=== PATIENT | female | born 1990 | race Caucasian/White ===

== ENCOUNTER 2024-12-31 15:50 | Observation (INO) | payer OTHER, SELFPAY ==
[2024-12-31 16:07] VITALS: BP 144/77; BMI 24.5
[2024-12-31 17:23] LABS: Hematocrit 34.3 % (37.0-47.0); Hemoglobin 12.1 g/dL (12.0-16.0); Mean Corp Hgb Conc. 35.3 g/dL (33.0-37.0); Mean Corpuscular Hgb 32.5 pg (27.0-31.0); Mean Corpuscular Volume 92.2 fL (81.0-99.0); Platelet Count 197 10^3/uL (130-400); Red Blood Cell Count 3.72 10^6/uL (4.20-5.40); Red Cell Dist. Width 12.3 % (11.5-14.5); White Blood Cell Count 12.7 10^3/uL (4.8-10.8)
[2024-12-31 17:40] LABS: Protein/creatinine Ratio 0.3; Urine Protein 16 mg/dl
[2024-12-31 17:48] LABS: ALT (SGPT) 12 U/L (0-35); AST (SGOT) 15 U/L (14-36); Albumin 3.6 g/dl (3.5-5.0); Alkaline Phosphatase 44 U/L (38-126); Blood Urea Nitrogen 12 mg/dl (7-17); Calcium 9.1 mg/dl (8.4-10.2); Carbon Dioxide 20 mmol/L (22-30); Chloride 110 mmol/L (98-107); Estimated Creatinine Clearance > 125 ml/min; Glucose 92 mg/dl (70-99); Potassium 3.7 mmol/L (3.5-5.1); Sodium 136 mmol/L (135-145); Total Bilirubin 0.2 mg/dl (0.2-1.3); Total Protein 6.2 g/dl (6.3-8.2); eGFR > 60.00
[2025-01-01 06:18] LABS: Hematocrit 33.2 % (37.0-47.0); Hemoglobin 11.5 g/dL (12.0-16.0); Mean Corp Hgb Conc. 34.6 g/dL (33.0-37.0); Mean Corpuscular Hgb 32.2 pg (27.0-31.0); Mean Platelet Volume 10.3 fL (7.4-10.4); Platelet Count 196 10^3/uL (130-400); Red Blood Cell Count 3.57 10^6/uL (4.20-5.40); Red Cell Dist. Width 12.3 % (11.5-14.5); White Blood Cell Count 10.2 10^3/uL (4.8-10.8)
[2025-01-01 06:36] LABS: ALT (SGPT) 11 U/L (0-35); AST (SGOT) 15 U/L (14-36); Albumin 3.3 g/dl (3.5-5.0); Alkaline Phosphatase 42 U/L (38-126); Blood Urea Nitrogen 9 mg/dl (7-17); Calcium 8.1 mg/dl (8.4-10.2); Carbon Dioxide 22 mmol/L (22-30); Estimated Creatinine Clearance > 125 ml/min; Glucose 86 mg/dl (70-99); Potassium 3.7 mmol/L (3.5-5.1); Sodium 135 mmol/L (135-145); Total Bilirubin 0.3 mg/dl (0.2-1.3); Total Protein 5.8 g/dl (6.3-8.2); eGFR > 60.00
[2025-01-01 06:45] LABS: Chloride 110 mmol/L (98-107)
--- NOTE | 2025-01-01 09:44 | CON.CAR ---
Consultation
Consultation Request
Date/Time Consultation Requested: January 01, 2025
Date/Time Consultation Performed: January 01, 2025
Requesting Provider: [facility]
Performing Provider: Elieser
Reason for Consultation: Preeclampsia with hypertension
Medical History
-
Chief Complaint: Preeclampsia with hypertension
History of Present Illness:
Leana Bey is a very pleasant 34-year-old female who is 21 weeks who presented for decreased movement. Apparently everything is thankfully okay with baby but mom was noted to have blood pressures in the 140s over 80s to 90
systolic. No neurologic symptoms. No chest symptoms, dyspnea dyspnea exertion or chest pain. She had preeclampsia in a prior and has proteinuria. No prior cardiac workup
Past Medical History
Past Medical History: HTN
Past Surgical History: Gynecological
Social History
Tobacco: Non-Smoker
Alcohol: None
Drug: None
Personal:
Living: With Family
Employment: Other
Family History
Family History: Reviewed & Not Pertinent
Allergies / Home Medications
Allergy/AdvReac Type Severity Reaction Status Date / Time
No Known Allergies Allergy Verified 02/17/22 22:29
�Medication �Instructions �Recorded �Confirmed �Type
1 tab PO 1XD 12/31/24 12/31/24 History
Review of Systems
-
All other systems: Negative unless noted
Physical Exam
Vital Signs
Temp Pulse Resp BP
98.2 F 74 18 144/77
12/31/24 16:07 12/31/24 16:07 12/31/24 16:07 12/31/24 16:07
Lab Results
01/01/25 06:05
01/01/25 06:05
Physical Exam
General: Well Developed, Well Nourished, No Apparent Distress and Comfortable
HEENT: Normocephalic, Anicteric and Atraumatic
Respiratory: Clear
Cardiac: S1/S2, Regular Rhythm and Murmur (No murmur)
Breast: Deferred by me
GI: Soft, Non Tender and Distended (Gravid abdomen)
Rectal: Deferred by Provider
Musculoskeletal: No Clubbing and No Cyanosis
Skin: Warm and Dry
Neuro: Awake, Alert, Oriented and AO x 3
Hematologic/Lymphatic: No Lymphadenopathy
Psych: Calm
Impression / Plan
-
Impression:
Preeclampsia
Hypertension
Proteinuria
Preeclampsia with prior
Recommendations:
Would be reasonable to consider labetalol 100 mg twice daily with monthly ultrasounds and should be able to use with breast-feeding. Direct conversation with [facility] team regarding plan.
- I will have my office reach out to patient to schedule an outpatient echocardiogram and visit with one of our hypertension specialists
Data Reviewed
-
Labs: Labs Reviewed by me
Old Records: Requested
== END 2025-01-01 12:55 | disposition home or self-care (01) ==
LOC: LDRP 15:50
PROVIDERS: ADMITTING PHYSICIAN Student in an Organized Health Care Education/Training Program; CONSULT PHYSICIAN Internal Medicine Cardiovascular Disease
DX: O11.2 Pre-existing hypertension with pre-eclampsia, second trimester (principal); O10.012 Pre-existing essential hypertension complicating pregnancy, second trimester; Z3A.21 21 weeks gestation of pregnancy; O36.8120 Decreased fetal movements, second trimester, not applicable or unspecified; O09.292 Supervision of pregnancy with other poor reproductive or obstetric history, second trimester; Z87.442 Personal history of urinary calculi; Z82.49 Family history of ischemic heart disease and other diseases of the circulatory system
CPT/HCPCS: 80053; 82570; 84156; 85027; G0378

== ENCOUNTER → 2025-01-06 10:54 | Outpatient (REF) | payer OTHER, SELFPAY | LOC: HWRCS 10:54 | PROVIDERS: ATTENDING PHYSICIAN Internal Medicine Cardiovascular Disease | DX: O14.92 Unspecified pre-eclampsia, second trimester (principal); I10 Essential (primary) hypertension | CPT/HCPCS: 93306 ==

== ENCOUNTER → 2025-01-24 07:15 | Outpatient (REF) | payer OTHER, SELFPAY | LOC: PNTC 07:15 | PROVIDERS: ATTENDING PHYSICIAN Student in an Organized Health Care Education/Training Program | DX: O16.9 Unspecified maternal hypertension, unspecified trimester (principal) | CPT/HCPCS: 76816 ==

== ENCOUNTER → 2025-02-21 10:03 | Outpatient (REF) | payer OTHER, SELFPAY | LOC: PNTC 10:03 | PROVIDERS: ATTENDING PHYSICIAN Student in an Organized Health Care Education/Training Program | DX: I10 Essential (primary) hypertension (principal) | CPT/HCPCS: 76816 ==

== ENCOUNTER 2025-03-21 09:34 | Observation (INO) | payer OTHER, SELFPAY ==
[2025-03-21 10:15] VITALS: BP 137/76; BMI 29.9
[2025-03-21 10:16] LABS: Hematocrit 36.7 % (37.0-47.0); Hemoglobin 12.6 g/dL (12.0-16.0); Mean Corp Hgb Conc. 34.3 g/dL (33.0-37.0); Mean Corpuscular Volume 91.8 fL (81.0-99.0); Platelet Count 220 10^3/uL (130-400); Red Cell Dist. Width 12.5 % (11.5-14.5)
[2025-03-21 10:41] LABS: ALT (SGPT) 14 U/L (0-35); AST (SGOT) 17 U/L (14-36); Albumin 3.7 g/dl (3.5-5.0); Alkaline Phosphatase 70 U/L (38-126); Blood Urea Nitrogen 7 mg/dl (7-17); Calcium 9.2 mg/dl (8.4-10.2); Carbon Dioxide 23 mmol/L (22-30); Chloride 106 mmol/L (98-107); Estimated Creatinine Clearance > 125 ml/min; Glucose 90 mg/dl (70-99); Potassium 4.1 mmol/L (3.5-5.1); Sodium 135 mmol/L (135-145); Total Protein 6.3 g/dl (6.3-8.2); eGFR > 60.00
== END 2025-03-21 11:32 | disposition home or self-care (01) ==
LOC: PNTC-IN 09:34
PROVIDERS: ADMITTING PHYSICIAN Obstetrics & Gynecology; ATTENDING PHYSICIAN Student in an Organized Health Care Education/Training Program
DX: O10.913 Unspecified pre-existing hypertension complicating pregnancy, third trimester (principal); Z3A.32 32 weeks gestation of pregnancy; O28.3 Abnormal ultrasonic finding on antenatal screening of mother; O09.293 Supervision of pregnancy with other poor reproductive or obstetric history, third trimester; Z87.442 Personal history of urinary calculi; Z82.49 Family history of ischemic heart disease and other diseases of the circulatory system
CPT/HCPCS: 59025; 76816; 80053; 85027; G0378

== ENCOUNTER 2025-03-28 09:23 | Observation (INO) | payer OTHER, SELFPAY ==
[2025-03-28 09:58] VITALS: BP 141/78; BMI 29.9
[2025-03-28 10:01] LABS: Hematocrit 36.3 % (37.0-47.0); Hemoglobin 12.8 g/dL (12.0-16.0); Mean Corp Hgb Conc. 35.3 g/dL (33.0-37.0); Mean Corpuscular Volume 92.4 fL (81.0-99.0); Platelet Count 216 10^3/uL (130-400); Red Cell Dist. Width 12.6 % (11.5-14.5)
[2025-03-28 10:20] LABS: ALT (SGPT) 16 U/L (0-35); AST (SGOT) 17 U/L (14-36); Albumin 3.6 g/dl (3.5-5.0); Alkaline Phosphatase 65 U/L (38-126); Blood Urea Nitrogen 8 mg/dl (7-17); Calcium 9.7 mg/dl (8.4-10.2); Carbon Dioxide 21 mmol/L (22-30); Chloride 107 mmol/L (98-107); Estimated Creatinine Clearance > 125 ml/min; Glucose 120 mg/dl (70-99); Potassium 3.8 mmol/L (3.5-5.1); Sodium 134 mmol/L (135-145); Total Protein 6.6 g/dl (6.3-8.2); eGFR > 60.00
[2025-03-28 10:20] LABS: Urine Character Clear (Clear)
[2025-03-28 11:57] LABS: Urine Red Blood Cell None Seen /HPF (0-2)
== END 2025-03-28 11:10 | disposition home or self-care (01) ==
LOC: PNTC-IN 09:23
PROVIDERS: ADMITTING PHYSICIAN Obstetrics & Gynecology; ATTENDING PHYSICIAN Student in an Organized Health Care Education/Training Program
DX: O13.3 Gestational [pregnancy-induced] hypertension without significant proteinuria, third trimester (principal); Z3A.33 33 weeks gestation of pregnancy; O09.293 Supervision of pregnancy with other poor reproductive or obstetric history, third trimester; Z82.49 Family history of ischemic heart disease and other diseases of the circulatory system
CPT/HCPCS: 59025; 76815; 80053; 81003; 81015; 82570; 84156; 85027; G0378

== ENCOUNTER → 2025-04-04 08:28 | Outpatient (REF) | payer OTHER, SELFPAY | LOC: PNTC 08:28 | PROVIDERS: ATTENDING PHYSICIAN Student in an Organized Health Care Education/Training Program | DX: O13.9 Gestational [pregnancy-induced] hypertension without significant proteinuria, unspecified trimester (principal); Z36.9 Encounter for antenatal screening, unspecified | CPT/HCPCS: 59025; 76815 ==

== ENCOUNTER → 2025-04-11 08:36 | Outpatient (REF) | payer OTHER, SELFPAY | LOC: PNTC 08:36 | PROVIDERS: ATTENDING PHYSICIAN Student in an Organized Health Care Education/Training Program | DX: O09.293 Supervision of pregnancy with other poor reproductive or obstetric history, third trimester (principal) | CPT/HCPCS: 59025; 76815 ==

== ENCOUNTER → 2025-04-18 08:34 | Outpatient (REF) | payer OTHER, SELFPAY | LOC: PNTC 08:34 | PROVIDERS: ATTENDING PHYSICIAN Student in an Organized Health Care Education/Training Program | DX: O14.03 Mild to moderate pre-eclampsia, third trimester (principal); O09.93 Supervision of high risk pregnancy, unspecified, third trimester | CPT/HCPCS: 76816 ==

== ENCOUNTER 2025-04-24 07:25 | Inpatient (IN) | payer OTHER, SELFPAY ==
[2025-04-24 07:33] VITALS: BP 151/85; BMI 32.0
[2025-04-24] MEDS: LR 1000 IV ×3 (07:48→21:04)
[2025-04-24] MEDS: TRANDATE 100 MG PO ×2 (08:42→20:01)
[2025-04-24 08:49] LABS: Hematocrit 36.7 % (37.0-47.0); Hemoglobin 12.8 g/dL (12.0-16.0); Mean Corp Hgb Conc. 34.9 g/dL (33.0-37.0); Mean Corpuscular Volume 90.2 fL (81.0-99.0); Nucleated Red Blood Cells % 0 %; Platelet Count 213 10^3/uL (130-400); Red Cell Dist. Width 12.3 % (11.5-14.5)
[2025-04-24 09:16] LABS: AST (SGOT) 20 U/L (14-36); Albumin 3.7 g/dl (3.5-5.0); Alkaline Phosphatase 83 U/L (38-126); Blood Urea Nitrogen 10 mg/dl (7-17); Carbon Dioxide 21 mmol/L (22-30); Chloride 107 mmol/L (98-107); Estimated Creatinine Clearance > 125 ml/min; Glucose 157 mg/dl (70-99); Potassium 3.9 mmol/L (3.5-5.1); Sodium 136 mmol/L (135-145); Total Protein 6.6 g/dl (6.3-8.2); eGFR > 60.00
[2025-04-24] MEDS: CYTOTEC 25 MICROGRAM PO (09:21)
[2025-04-24] MEDS: TUMS CHEWABLE TABLET 400 MG PO ×2 (09:23→20:01)
[2025-04-24 09:25] LABS: ALT (SGPT) 16 U/L (0-35); Calcium 10.1 mg/dl (8.4-10.2)
[2025-04-24] MEDS: PITOCIN 30 UNITS/NSS 500 ML IV (13:44)
[2025-04-24] MEDS: TYLENOL 1000 MG PO (18:06)
[2025-04-24] MEDS: SUBLIMAZE 100 MCG EPIDURAL (18:58)
[2025-04-24] MEDS: FENTANYL/BUPIVACAINE 100 EPIDURAL (18:58)
[2025-04-24] MEDS: PRENATAL PLUS 1 TABLET PO (22:26)
[2025-04-25] MEDS: TYLENOL 650 MG PO ×4 (00:29→18:38)
[2025-04-25] MEDS: MOTRIN 600 MG PO ×4 (00:29→18:38)
[2025-04-25] MEDS: TUMS CHEWABLE TABLET 400 MG PO ×3 (05:49→22:35)
[2025-04-25 05:56] LABS: Hematocrit 33.6 % (37.0-47.0); Hemoglobin 11.8 g/dL (12.0-16.0)
[2025-04-25] MEDS: TRANDATE 100 MG PO ×2 (08:42→19:57)
[2025-04-25] MEDS: COLACE 100 MG PO ×2 (08:45→19:57)
[2025-04-25 13:10] LABS: Syphilis/T. pallidum Ab Reflex Negative (Negative)
[2025-04-25] MEDS: PRENATAL PLUS 1 TABLET PO (21:55)
[2025-04-25] MEDS: TYLENOL #3 1 TABLET PO (22:39)
[2025-04-26] MEDS: TYLENOL 650 MG PO ×2 (05:08→10:57)
[2025-04-26] MEDS: MOTRIN 600 MG PO ×2 (05:08→10:57)
[2025-04-26] MEDS: COLACE 100 MG PO (08:49)
[2025-04-26] MEDS: TRANDATE PO (08:51)
[2025-04-26] MEDS: TUMS CHEWABLE TABLET 400 MG PO (10:56)
== END 2025-04-26 11:45 | disposition home or self-care (01) | DRG 807 ==
LOC: LDRP 07:25
PROVIDERS: ADMITTING PHYSICIAN Student in an Organized Health Care Education/Training Program
PROC: 10E0XZZ Delivery of Products of Conception, External Approach (ICD-10-PCS; 2025-04-24)
PROC: 10907ZC Drainage of Amniotic Fluid, Therapeutic from Products of Conception, Via Natural or Artificial Opening (ICD-10-PCS; 2025-04-24)
PROC: 3E033VJ Introduction of Other Hormone into Peripheral Vein, Percutaneous Approach (ICD-10-PCS; 2025-04-24)
DX: O11.4 Pre-existing hypertension with pre-eclampsia, complicating childbirth (principal); Z37.0 Single live birth; O10.02 Pre-existing essential hypertension complicating childbirth; Z3A.37 37 weeks gestation of pregnancy
CPT/HCPCS: 36415; 59025; 76815; 80053; 82570; 84156; 85014; 85018; 85025; 86780; 86850; 86900; 86901